=== PATIENT | female | born 1985 | race Caucasian/White ===

== ENCOUNTER 2017-06-30 21:20 | Emergency (ER) | payer MEDICAID ==
[~2017-06-30] VITALS: Ht 162.6 cm; Wt 67.3 kg
[2017-06-30] MEDS ORDERED: morphine 4 MG/ML inj SYRINge IV ONE (21:45)
[2017-06-30] MEDS ORDERED: ondansetron/PF 4mg/2ml inj IV ONE (21:45)
[2017-06-30 22:28] LABS: BASOPHILS # (AUTO) 0.1 X10'3 (0-0.2); BASOPHILS % (AUTO) 0.4 % (0-1); EOSINOPHILS # (AUTO) 0.7 X10'3 (0-0.9); EOSINOPHILS % (AUTO) 4.6 % (0-6); HEMATOCRIT 39.6 % (35.0-45.0); HEMOGLOBIN 13.8 g/dl (12.0-16.0); LYMPHOCYTES # (AUTO) 3.4 X10'3 (1.1-4.8); LYMPHOCYTES % (AUTO) 21.5 % (21-51); MEAN CORPUSCULAR HEMOGLOBIN 30.1 PG (27.0-31.0); MEAN CORPUSCULAR HGB CONC 34.9 % (33.0-36.5); MEAN CORPUSCULAR VOLUME 86.2 FL (78-98); MEAN PLATELET VOLUME 8.7 FL (7.4-10.4); MONOCYTES # (AUTO) 0.6 X10'3 (0-0.9); NEUTROPHILS # (AUTO) 11.2 X10'3 (1.8-7.7); NEUTROPHILS % (AUTO) 69.5 % (42-75); PLATELET COUNT 328 X10'3 (140-440); RED BLOOD COUNT 4.59 X10'6 (4.20-5.60)
[2017-06-30 22:33] LABS: PARTIAL THROMBOPLASTIN TIME 23 SECONDS (22-32); PROTHROMBIN TIME 10.6 SECONDS (9.0-12.0)
[2017-06-30 22:58] LABS: ALANINE AMINOTRANSFERASE 35 U/L (12-78); ALBUMIN 4.1 G/DL (3.4-5.0); ALBUMIN/GLOBULIN RATIO 1.1 (1.1-1.5); ALKALINE PHOSPHATASE 97 IU/L (46-116); ANION GAP 11 (8-16); ASPARTATE AMINO TRANSFERASE 36 U/L (10-37); BILIRUBIN,TOTAL 0.7 MG/DL (0.1-1.0); BLOOD UREA NITROGEN 13 MG/DL (7-18); BUN/CREATININE RATIO 14.9 (6.6-38.0); CALCIUM 8.8 MG/DL (8.5-10.1); CHLORIDE 104 MMOL/L (99-107); CREATININE 0.87 MG/DL (0.40-0.90); GLUCOSE 129 MG/DL (70-104); LACTATE DEHYDROGENASE 178 U/L (81-234); LIPASE 155 U/L (73-393); POTASSIUM 4.1 MMOL/L (3.5-5.1); SODIUM 144 MMOL/L (135-145); TOTAL CARBON DIOXIDE 29.5 MMOL/L (24-32); TOTAL PROTEIN 7.7 G/DL (6.4-8.2); eGFR 75 ML/MIN
[2017-06-30] MEDS ORDERED: iohexol 300mg/ml 100ml inj. ONE (23:21)
[2017-06-30 23:57] LABS: HCG SERUM QL NEGATIVE
[2017-07-01 00:21] VITALS: BP 104/64
[2017-07-01] MEDS ORDERED: PANT20TA2 PO (01:00)
[2017-07-01] MEDS ORDERED: pantoprazole 40mg Tablet.DR PO SCH (07:30)
== END 2017-07-01 01:29 | disposition home or self-care (01) ==
LOC: ER 21:21
DX: R10.13 Epigastric pain (principal); R07.89 Other chest pain; R11.2 Nausea with vomiting, unspecified
CPT/HCPCS: 36415; 71045; 74177; 80053; 83615; 83690; 84484; 84703; 85025; 85610; 85730; 93005; 96374; 96375; 99285; J2270; J2405; J7030; Q9967